=== PATIENT | female | born 1965 | race Caucasian/White ===

== ENCOUNTER → 2017-07-27 | Outpatient (CLI) | payer MEDICARE, MEDICAID ==
[2017-07-27 18:41] LABS: HEMOGLOBIN 15.2 g/dL (12.2-16.2); LYMPH # 4.4 K/mm3 (0.7-4.5); LYMPH % 46.8 % (10-50.0)
[2017-07-27 19:44] LABS: BUN 9 mg/dL (7-18)
[2017-07-27 19:46] LABS: GFR (ESTIMATED) 87 ML/MIN (59-)
== END ==
LOC: LAB 17:48
PROVIDERS: Emergency Medicine
DX: E83.119 Hemochromatosis, unspecified (principal); Z79.899 Other long term (current) drug therapy